=== PATIENT | female | born 1975 | race Caucasian/White ===

== ENCOUNTER 2017-02-23 09:07 | Emergency (ER) | payer BC ==
--- NOTE | 2017-02-23 09:54 | UC ---
Lower Extremity/Ankle HPI - HPI Summary HPI Summary: right knee pain after a few separate twisting and popping type injuries while excersizing over the last week or so. There has been some swelling. no locking or clicking. no prior injury to that knee. - History of Current Complaint Chief Complaint: UCLowerExtremity Stated Complaint: RIGHT KNEE COMPLAINT Time Seen by Provider: 02/23/17 09:30 Hx Obtained From: Patient Hx Last Menstrual Period: 02/20/17 ?: No Onset/Duration: Sudden Onset, Lasting Weeks Severity Initially: Moderate Severity Currently: Moderate Aggravating Factor(s): Standing, Ambulation Alleviating Factor(s): Rest, Elevation Able to Bear Weight: Yes - Allergies/Home Medications Allergies/Adverse Reactions: Allergies Allergy/AdvReac Type Severity Reaction Status Date / Time Adhesive Tape Allergy Itching Verified 02/23/17 09:36 PMH/Surg Hx/FS Hx/Imm Hx Previously Healthy: No - obesity. - Surgical History Surgical History: Yes Surgery Procedure, Year, and Place: tonsillectomy @ 13 yrs of age; - Family History Known Family History: Positive: Other - no related knee family history. - Social History Lives: With Family Alcohol Use: Rare Substance Use Type: None Smoking Status (MU): Former Smoker When Did the Patient Quit Smoking/Using Tobacco: 17 YRS AGO - Immunization History Most Recent Influenza Vaccination: no Most Recent Tetanus Shot: 2013 Review of Systems Musculoskeletal: Arthralgia All Other Systems Reviewed And Are Negative: Yes Physical Exam Triage Information Reviewed: Yes Appearance: Obese Vital Signs: Initial Vital Signs Temp 98.6 F 02/23/17 09:30 Pulse 64 02/23/17 09:30 Resp 16 02/23/17 09:30 BP 126/79 02/23/17 09:30 Pulse Ox 99 02/23/17 09:30 Vital Signs Reviewed: Yes Eyes: Positive: Conjunctiva Clear ENT: Positive: Pharynx normal Neck: Negative: Nuchal Rigidity Respiratory: Positive: No respiratory distress, No accessory muscle use Cardiovascular: Positive: Brisk Capillary Refill Musculoskeletal Exam: Other - right knee diffuse mild tenderness. small effusion. not hot or red. no pain with passive rom. There is pain with apley grind. good solid endpoints with valgus stress, varus stress, and anterior drawer. Neurological: Positive: Alert, Muscle Tone Normal. Negative: Fatigued Psychological: Positive: Age Appropriate Behavior Skin: Positive: rashes Procedures - Splinting Hand-Made Type: johnathan wrap. Pre-Proc Neuro Vasc Exam: normal Post-Proc Neuro Vasc Exam: normal Lower Extremity Course/Dx - Differential Dx/Diagnosis Provider Diagnoses: meniscus tear. right knee sprain. possible internal derangement. Discharge - Discharge Plan Condition: Good Disposition: HOME Prescriptions: Naproxen [Naproxen 500 mg] 500 mg PO BID #20 tab Patient Education Materials: Meniscus Tear (ED) Referrals: Erickson Sands MD [Medical Doctor] -
[2017-02-23 09:57] VITALS: BP 126/79
--- NOTE | 2017-02-23 10:10 | RAD ---
INDICATION: Trauma, right knee pain. TECHNIQUE: 2 views of the right knee were obtained. FINDINGS: The bones are in normal alignment. There is a moderate joint effusion present. No fracture is seen. There is mild to moderate osteoarthritic change in the medial and patellofemoral compartments. IMPRESSION: JOINT EFFUSION, NO FRACTURE IS SEEN.
== END 2017-02-23 10:21 | disposition home or self-care (01) ==
LOC: UCCORT 09:07
DX: S83.200A Bucket-handle tear of unspecified meniscus, current injury, right knee, initial encounter (principal); S83.91XA Sprain of unspecified site of right knee, initial encounter; X50.1XXA Overexertion from prolonged static or awkward postures, initial encounter; Z91.048 Other nonmedicinal substance allergy status; Z87.891 Personal history of nicotine dependence
CPT/HCPCS: 99212; G0463

== ENCOUNTER 2022-12-21 06:04 | Inpatient (IN) ==
[~2022-12-21 06:04] MED LIST: Buffered Lidocaine 1% SYRIN 1 ml INTRADERM ONE; Lactated Ringers 1000 ml BAG 1,000 ML IV SCH; Scopolamine 1 mg/72hr PATCH TRANSDERM ONE
[2022-12-21] MEDS ORDERED: Buffered Lidocaine 1% SYRIN 1 ml ONE (06:21)
[2022-12-21] MEDS ORDERED: Heparin 5000 UNITS/ML 1 mL VIAL ONE (06:21)
[2022-12-21] MEDS ORDERED: Scopolamine 1 mg/72hr PATCH ONE (06:21)
[2022-12-21] MEDS ORDERED: ceFAZolin *3* GM in NS PREMIX 3 GM/100 ML BAG IV ONE (06:21)
[2022-12-21 06:37] LABS: Rapid COVID-19 Molecular Undetected (Undetected)
[2022-12-21] MEDS ORDERED: Methylene Blue 0.5 % 50 MG/10 ML AMP IV ONE (07:01)
[2022-12-21] MEDS ORDERED: Bupivacaine 0.25% EPI 200,000 30 ML SDV ONE (07:01)
[2022-12-21] MEDS ORDERED: Propofol 10 MG/ML 20 ML BTL ONE (07:13)
[2022-12-21] MEDS ORDERED: Lidocaine 2% PF 5 ML VIAL ONE (07:13)
[2022-12-21] MEDS ORDERED: Rocuronium 50 mg VIAL 10 mg/ml 5 ml VIAL (50 mg) ONE ×2 (07:16→08:12)
[2022-12-21] MEDS ORDERED: Midazolam 2 mg/2 ml VIAL 1 mg/ml 2 ml VIAL (2 mg) ONE (07:16)
[2022-12-21] MEDS ORDERED: fentaNYL 250 mcg/5 ml 50 MCG/ML 5 ml VIAL (250 MCG) ONE (07:16)
[2022-12-21] MEDS ORDERED: Ondansetron 4 mg VIAL 2 MG/ML 2 ml VIAL ONE ×3 (07:57→10:41)
[2022-12-21] MEDS ORDERED: Dexamethasone IV 4 MG/ML VIAL 1 ml VIAL ONE (07:57)
[2022-12-21] MEDS ORDERED: HYDROmorphone 0.5 MG/0.5 ML SYRINGE ONE (09:32)
[2022-12-21] MEDS ORDERED: Ondansetron 4 mg VIAL 2 MG/ML 2 ml VIAL IV PRN ×2 (10:05→10:20)
[2022-12-21] MEDS ORDERED: HYDROmorphone 0.5 MG/0.5 ML SYRINGE IV SLOW PU PRN (10:05)
[2022-12-21] MEDS ORDERED: Acetaminophen IV 1 GM/100ML 1,000 MG/100 ML BAG IV SCH (10:15)
[2022-12-21] MEDS ORDERED: Naloxone 0.4 mg VIAL 0.4 mg/ml 1 ml VIAL IV PRN (10:20)
[2022-12-21] MEDS ORDERED: HYDROmorphone 1 MG/1 ML SYRINGE IV PRN (10:20)
[2022-12-21] MEDS ORDERED: fentaNYL 100 mcg/2 ml 50 MCG/ML VIAL IV PRN (10:20)
[2022-12-21] MEDS ORDERED: Prochlorperazine 5 mg/ml 2 ml VIAL (10 mg) IV PRN (13:28)
[2022-12-21] MEDS: Lactated Ringers 1000 ml BAG 1,000 ML IV SCH (13:31)
[2022-12-21] MEDS: Heparin 5000 UNITS/ML 1 mL VIAL SUBCUT SCH ×2 (14:38→22:03)
[2022-12-21] MEDS: Acetaminophen IV 1 GM/100ML 1,000 MG/100 ML BAG IV SCH ×2 (14:39→22:02)
[2022-12-21] MEDS: Famotidine IV 10 MG/ML 2 ml VIAL (20 mg) IV SLOW PU SCH (22:03)
[2022-12-22] MEDS: Acetaminophen IV 1 GM/100ML 1,000 MG/100 ML BAG IV SCH ×2 (02:48→08:09)
[2022-12-22] MEDS: Lactated Ringers 1000 ml BAG 1,000 ML IV SCH (02:52)
[2022-12-22] MEDS: Heparin 5000 UNITS/ML 1 mL VIAL SUBCUT SCH (05:40)
[2022-12-22] MEDS: Famotidine IV 10 MG/ML 2 ml VIAL (20 mg) IV SLOW PU SCH (08:09)
[2022-12-22 10:11] VITALS: BP 122/83
[2022-12-22] MEDS ORDERED: D5W 1/2 NS KCl 20 meq 1000 ml 1,000 ML IV SCH (14:01)
== END 2022-12-22 14:40 | disposition home or self-care (01) | DRG 403 ==
LOC: AA 06:04 → SSU 13:34
PROVIDERS: ADMIT Surgery; ATTEND Surgery

== ENCOUNTER 2023-07-14 11:06 | Observation (INO) ==
[2023-07-14 12:20] LABS: ABS Eosinophils 0.1 10^3/uL (0.0-0.5); ABS Lymphocytes 1.9 10^3/uL (1.0-4.8); ABS Monocytes 0.3 10^3/uL (0.0-0.9); ABS Neutrophils 2.4 10^3/uL (1.5-7.6); Eosinophil % 1.2 %; Hematocrit 37.4 % (35-45); Hemoglobin 12.6 g/dL (11.5-14.3); Lymphocyte % 40.4 %; Mean Corpuscular Hemoglobin 29.1 pg (27-33); Mean Corpuscular Hgb Conc 33.8 g/dL (31-36); Mean Corpuscular Volume 85.9 fL (80-97); Mean Platelet Volume 8.8 fL (7.5-11.2); Nucleated Red Blood Cells % 0.1 %/100WBC (0.0-0.8); Platelet Count 173 10^3/uL (150-450); Red Blood Count 4.35 10^6/uL (3.63-4.92); Red Cell Distribution Width 14.9 % (12-17); White Blood Count 4.8 10^3/uL (3.8-11.8)
[2023-07-14 12:31] LABS: Activated Partial Thrombo Time 34.7 seconds (26.0-38.0); INR 1.05 (0.83-1.13)
[2023-07-14] MEDS: Scopolamine 1 mg/72hr PATCH TRANSDERM ONE (13:00)
[2023-07-14] MEDS ORDERED: Naloxone 0.4 mg VIAL 0.4 mg/ml 1 ml VIAL IV PUSH PRN ×2 (13:00→14:15)
[2023-07-14] MEDS: Ondansetron 4 mg VIAL 2 MG/ML 2 ml VIAL IV ONE (13:00)
[2023-07-14 13:10] LABS: Calcium 9.4 mg/dL (8.6-10.3); Creatinine, Serum 0.66 mg/dL (0.51-0.95); HCG Pregnancy 1.08 mIU/mL; Potassium 3.8 mmol/L (3.5-5.0); eGFR CKD-EPI 109.5 (>60)
[2023-07-14] MEDS ORDERED: Scopolamine 1 mg/72hr PATCH ONE (13:17)
[2023-07-14] MEDS ORDERED: Ondansetron 4 mg VIAL 2 MG/ML 2 ml VIAL ONE (13:17)
[2023-07-14] MEDS ORDERED: Heparin 2 UNITS/ML IVPREMIX 3,000 UNIT/1,500 ML BAG IV ONE (13:45)
[2023-07-14] MEDS ORDERED: Iohexol 350 (CONTRAST) 100 ML PAK IV ONE ×3 (13:45→16:25)
[2023-07-14] MEDS ORDERED: Lidocaine 1% VIAL 10 MG/ML 30 ML VIAL ONE (13:45)
[2023-07-14] MEDS ORDERED: nitroGLYCERIN DRIP 25,000 MCG/250 ML BTL ONE (13:45)
[2023-07-14] MEDS ORDERED: Midazolam 5 mg/5 ml VIAL 1 mg/ml 5 ml VIAL (5 mg) ONE (14:00)
[2023-07-14] MEDS ORDERED: Flumazenil 0.5 mg/5 ml 0.1 MG/ML 5 ml VIAL IV PRN (14:15)
[2023-07-14] MEDS ORDERED: Morphine 10 MG/ML VIAL (1 ml) ONE (14:34)
[2023-07-14] MEDS ORDERED: Heparin 2 UNITS/ML IVPREMIX 1,000 UNIT/500 ML BAG IV ONE ×2 (16:05→16:25)
[2023-07-14] MEDS ORDERED: HYDROmorphone 0.5 MG/0.5 ML SYRINGE ONE (16:44)
[2023-07-14] MEDS: NS 0.9% 1,000 ML IV SCH (16:50)
[2023-07-14] MEDS: HYDROmorphone PCA 20 MG/20 ML PCA.SYRING PCA SCH (17:19)
[2023-07-14] MEDS: NS 0.9% 1000 ml BAG 500 ML IV ONE (17:25)
[2023-07-14] MEDS: Clindamycin 900 MG/50 **NS BAG 900 MG/50 ML BAG IV ONE (17:25)
[2023-07-14] MEDS: Midazolam 10 mg/10 ml VIAL 1 mg/ml 10 ml VIAL (10 mg) IV SLOW PU ONE (17:56)
[2023-07-14] MEDS: fentaNYL 100 mcg/2 ml 50 MCG/ML VIAL IV SLOW PU ONE (17:56)
[2023-07-14] MEDS: Ondansetron 4 mg VIAL 2 MG/ML 2 ml VIAL IV SCH (18:46)
[2023-07-15 06:44] LABS: Calcium 8.8 mg/dL (8.6-10.3); Creatinine, Serum 0.64 mg/dL (0.51-0.95); Potassium 3.8 mmol/L (3.5-5.0); eGFR CKD-EPI 110.3 (>60)
[2023-07-15 06:46] LABS: ABS Monocytes 0.5 10^3/uL (0.0-0.9); ABS Neutrophils 5.9 10^3/uL (1.5-7.6); Hematocrit 34.7 % (35-45); Hemoglobin 11.8 g/dL (11.5-14.3); Lymphocyte % 13.1 %; Mean Corpuscular Hemoglobin 29.2 pg (27-33); Mean Corpuscular Hgb Conc 34.1 g/dL (31-36); Mean Corpuscular Volume 85.9 fL (80-97); Mean Platelet Volume 8.9 fL (7.5-11.2); Platelet Count 164 10^3/uL (150-450); Red Blood Count 4.04 10^6/uL (3.63-4.92); Red Cell Distribution Width 14.9 % (12-17); White Blood Count 7.5 10^3/uL (3.8-11.8)
[2023-07-15] MEDS ORDERED: HYDROcodone/ACETAMIN 5/325 mg TAB PO PRN (09:48)
[2023-07-15] MEDS: Ketorolac 10 mg TAB (NF) PO SCH (10:05)
[2023-07-15 11:42] VITALS: BP 132/86
== END 2023-07-15 13:30 | disposition home or self-care (01) ==
LOC: CHICATH 11:06 → SSU 11:06
PROVIDERS: ADMIT Internal Medicine; ATTEND Internal Medicine
PROC: ANG.UFE (2023-07-14 13:15)

== ENCOUNTER 2024-02-19 23:49 | Observation (INO) ==
[2024-02-20] MEDS: Acetaminophen IV 1 GM/100ML 1,000 MG/100 ML BAG IV ONE (00:18)
[2024-02-20] MEDS ORDERED: Ondansetron 4 mg VIAL 2 MG/ML 2 ml VIAL IV PRN (01:43)
[2024-02-20] MEDS ORDERED: Morphine 2 MG/ML SYRINGE IV PRN (01:43)
[2024-02-20] MEDS: Pantoprazole VIAL 40 MG VIAL IV SCH (04:18)
[2024-02-20] MEDS: Acetaminophen IV 1 GM/100ML 1,000 MG/100 ML BAG IV PRN (04:26)
[2024-02-20 09:44] LABS: ABS Lymphocytes 1.8 10^3/uL (1.0-4.8); ABS Monocytes 0.4 10^3/uL (0.0-0.9); ABS Neutrophils 2.3 10^3/uL (1.5-7.6); Eosinophil % 0.8 %; Hemoglobin 12.1 g/dL (11.5-14.3); Lymphocyte % 40.6 %; Mean Corpuscular Hemoglobin 30.1 pg (27-33); Mean Corpuscular Hgb Conc 34.6 g/dL (31-36); Mean Platelet Volume 8.4 fL (7.5-11.2); Platelet Count 145 10^3/uL (150-450); Red Blood Count 4.03 10^6/uL (3.63-4.92); Red Cell Distribution Width 14.8 % (12-17); White Blood Count 4.5 10^3/uL (3.8-11.8)
[2024-02-20] MEDS ORDERED: Propofol 10 MG/ML 20 ML BTL ONE (10:09)
[2024-02-20] MEDS ORDERED: Lidocaine 2% PF 5 ML VIAL ONE (10:09)
[2024-02-20] MEDS ORDERED: fentaNYL 100 mcg/2 ml 50 MCG/ML VIAL ONE (10:10)
[2024-02-20] MEDS ORDERED: Rocuronium 50 mg VIAL 10 mg/ml 5 ml VIAL (50 mg) ONE (10:10)
[2024-02-20] MEDS ORDERED: Midazolam 2 mg/2 ml VIAL 1 mg/ml 2 ml VIAL (2 mg) ONE (10:10)
[2024-02-20 10:12] LABS: ALT 20 U/L (7-52); AST 16 U/L (13-39); Albumin 3.8 g/dL (3.2-5.2); Albumin/Globulin Ratio 1.7 (1-3); Alkaline Phosphatase 39 U/L (35-149); Anion Gap 7 mmol/L (2-16); Blood Urea Nitrogen 8 mg/dL (6-24); CO2 Carbon Dioxide 26 mmol/L (22-32); Calcium 8.7 mg/dL (8.6-10.3); Chloride 104 mmol/L (101-111); Creatinine, Serum 0.57 mg/dL (0.51-0.95); Globulin 2.3 g/dL (2-4); Glucose 104 mg/dL (70-100); Magnesium 1.9 mg/dL (1.9-2.7); Potassium 3.5 mmol/L (3.5-5.0); Sodium 137 mmol/L (135-145); Total Bilirubin 0.9 mg/dL (0.2-1.0); Total Protein 6.1 g/dL (6.4-8.9); eGFR CKD-EPI 112.7 (>60)
[2024-02-20] MEDS ORDERED: Buffered Lidocaine 1% SYRIN 1 ml INTRADERM ONE (10:23)
[2024-02-20] MEDS ORDERED: Naloxone 0.4 mg VIAL 0.4 mg/ml 1 ml VIAL IV PRN (10:23)
[2024-02-20] MEDS ORDERED: fentaNYL 100 mcg/2 ml 50 MCG/ML VIAL IV PRN (10:23)
[2024-02-20] MEDS ORDERED: Bupivacaine 0.25% EPI 200,000 30 ML SDV ONE (10:34)
[2024-02-20 10:38] LABS: HCG Pregnancy < 0.60 mIU/mL
[2024-02-20] MEDS ORDERED: Lactated Ringers 1000 ml BAG 1,000 ML IV SCH (11:00)
[2024-02-20] MEDS ORDERED: ceFAZolin 2 GM PREMIX 2 GM/50 ML BAG ONE (11:21)
[2024-02-20] MEDS ORDERED: Dexamethasone IV 4 MG/ML VIAL 1 ml VIAL ONE ×2 (11:37→14:28)
[2024-02-20] MEDS ORDERED: Ondansetron 4 mg VIAL 2 MG/ML 2 ml VIAL ONE ×2 (11:37→13:38)
[2024-02-20] MEDS ORDERED: Acetaminophen IV 1 GM/100ML 1,000 MG/100 ML BAG IV ONE (11:41)
[2024-02-20] MEDS: Ondansetron 4 mg VIAL 2 MG/ML 2 ml VIAL IV PRN (13:41)
[2024-02-20 16:50] VITALS: BP 129/81
== END 2024-02-20 17:58 | disposition home or self-care (01) ==
LOC: ED 23:49 → EDHOLD 23:49 → SUATTDRO 02-20 00:57 → MED 02-20 03:34
PROVIDERS: ADMIT Internal Medicine; ATTEND Hospitalist